=== PATIENT | female | born 1935 | race Caucasian/White ===

== ENCOUNTER → 2016-04-05 | Day surgery (SDC) | payer MEDICARE, OTHER ==
[2015-08-17 20:34] VITALS: BMI 38.1
[~2016-04-05] MED LIST: CEFAZOLIN 1 GM VIAL ONE; DEXAMETHASONE 4 MG/ML VIAL IV ONE; FENTANYL 100 MCG/2 ML VIAL IV ONE; FENTANYL 100 MCG/2 ML VIAL IV PRN; HYDROmorphone 1 MG INJECTION IV PRN; LABETALOL 20 MG/4 ML SYRINGE IV PRN; LIDOCAINE 100 MG PFS IV ONE; MEPERIDINE 25 MG/ML TUBEX IV PRN; MIDAZOLAM 2 MG/2 ML VIAL IV ONE; ONDANSETRON HCL 4 MG ODT TAB PO PRN; ONDANSETRON HCL 4 MG/2 ML VIAL IV ONE; ONDANSETRON HCL 4 MG/2 ML VIAL IV PRN; OXYCODONE HCL 5 MG TABLET ONE; PROPOFOL 200 MG/20 ML VIAL IV ONE; hydrALAZINE 20 MG/ML VIAL IV PRN
--- NOTE | 2016-04-05 09:23 | HIM.ANES ---
Anesthesia Evaluation & Plan Diagnoses: UNILATERAL PRIMARY OSTEOARTHRITIS, LEFT KNEE (04/05/16) PAIN IN LEFT KNEE (04/05/16) COMPLEX TEAR OF LAT MENSC, CURRENT INJURY, LEFT KNEE, INIT (04/05/16) - Focused Review of Systems Cardiac History: Yes: Hx Hypertension, Hx Afib/Aflutter, Hx Cardiac Disorders, Hx Abnormal Cholesterol/Hyperlipidemia HEENT: Yes: Cataract Removal, Hx Vision Problem (READING), Other HEENT Problems Respiratory: Yes: Hx Sleep Apnea (PER PCP) Gastrointestinal: Yes: Hx Gastroesophageal Reflux Disease, Hx Gastrointestinal Disorders, Hx Chronic Constipation, Hx Colonoscopy Neurological/Musculoskeletal: Yes: Hx Back Pain No: Hx Neurological Disorders Psychological: Yes Hx Anxiety, Yes Hx Mental/Emotional Disorders Endocrine: Yes: Hx Diet Controlled Diabetes (PRE DIABETIC 03/14/16 HGB A1C 6.0 ), Hx Hypothyroidism (TSH 3.270 03/14/2016) Blood/Autoimmune: No: Hx AIDS, Hx Hepatitis (type) Smoking Status: Never smoker Hx Echocardiogram (date): Yes (02/23/2016 EF 65% MILD MR,TR, LEFT ATRIUM MODERATELY DILATED) Surgical History: Yes: Knee (LEFT KNEE REPAIR 2006) Other Surgical History: TOTAL HYSTERECTOMY 1971 - Focused Physical Exam Mallampati: Class II Thyromental Distance: Less than 3 Neck: Full Range of Motion Dental: Normal - no significant findings Cardiovascular/Chest: Normal Respiratory: Lungs clear Any problems with anesthesia, including nausea and vomiting?: Yes Any relatives with a history of Malignant Hyperthermia?: No Does the patient have a history of Motion Sickness-: No Other: Problem List Problem Status Onset Cellulitis of left leg Acute Left leg pain Acute Hypothyroidism Chronic Allergies Allergy/AdvReac Type Severity Reaction Status Date / Time ezetimibe [From Zetia] Allergy Severe MYALGIA Verified 04/05/16 09:12 fish oil Allergy Severe Hives* Verified 04/05/16 09:12 Sulfa (Sulfonamide Allergy Severe Rash-Genera Verified 04/05/16 09:12 Antibiotics) lized colesevelam [From WelChol] Allergy Unknown Verified 04/05/16 09:12 cortisone Allergy See Verified 04/05/16 09:12 Comments prednisone Allergy Unknown Verified 04/05/16 09:12 GENESIS Inhibitors AdvReac Severe Cough Verified 04/05/16 09:12 atorvastatin calcium AdvReac Unknown MYALSIA Verified 04/05/16 09:12 [From Lipitor] eggs Allergy Severe Hives* Uncoded 04/05/16 09:12 seafood Allergy Severe Hives* Uncoded 04/05/16 09:12 Home Medications Medication Instructions Recorded Last Taken Type Calcium Carbonate [Calcium] 600 mg PO DAILY 08/12/14 04/04/16 17:00 History Levothyroxine Sodium [Synthroid] 150 mcg PO DAILY 08/12/14 04/05/16 06:30 History Lorazepam [Ativan] 0.5 mg PO TID PRN 08/12/14 04/04/16 23:00 History Losartan Potassium 100 mg PO QHS 08/12/14 04/03/16 22:00 History Metoprolol Succinate [Toprol Xl] 100 mg PO DAILY(HAILEY) 08/12/14 04/05/16 06:30 History Tramadol HCl 50 mg PO QID PRN 08/12/14 04/04/16 22:30 History Hydralazine HCl 25 mg PO TID #90 tab 07/06/15 04/05/16 06:30 Rx Diltiazem HCl [Cartia Xt] 120 mg PO DAILY 08/17/15 04/05/16 06:30 History Hydrocodone Bit/Acetaminophen 1 tab PO Q6H PRN #15 tab 08/17/15 Unknown Rx [Hydrocodon-Acetaminophen 5-325] Meloxicam [Mobic] 7.5 mg PO BID 08/17/15 03/30/16 History Cholecalciferol (Vitamin D3) 10,000 unit PO DAILY 04/04/16 04/04/16 17:00 History [Vitamin D3 (cholecalciferol)] Furosemide 40 mg PO DAILY PRN 04/04/16 2 Weeks Ago History Promethazine [Phenergan] 25 mg PO Q8H PRN 04/04/16 Unknown History Rivaroxaban [Xarelto] 20 mg PO DAILY 04/04/16 04/01/16 History Height and Weight Patient's height 5 ft 5 in Patient's weight 108.862 kg BMI 38.1 - Anesthetic Plan Anesthesia Type: General (LMA OK) ASA Class: 3 -: I have examined this patient and reviewed the medical record. The patient has been assessed prior to anesthesia. Risks and benefits of anesthesia and anesthetic technique options have been discussed and all questions answered. The patient accepts the risk and desires me to proceed with the planned anesthetic.
[2016-04-05] MEDS: BUPIVACAINE 0.25%-EPINEPHRINE 1:200,000 30 ML ONE ×2 (10:40→11:03)
[2016-04-05 11:59] VITALS: TEMP 97
--- NOTE | 2016-04-05 12:07 | HIMOP ---
DATE OF PROCEDURE: 04/05/2016 PREOPERATIVE DIAGNOSES: 1. Lateral meniscus tear left knee. 2. Osteoarthritis of left knee. POSTOPERATIVE DIAGNOSES: 1. Lateral meniscus tear left knee. 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 4. Synovitis. OPERATIONS: 1. Subtotal lateral meniscectomy left knee. 2. Chondroplasty patella. 3. Chondroplasty of femur and tibia. 4. Synovectomy. FACILITIES FLIGHT CHECK PILOT: Yojana Perez PA-C. ANESTHESIA: General. DRAINS: None. COMPLICATIONS: None. DISPOSITION: Stable to recovery. PROCEDURE IN DETAIL: The patient was taken back to the surgical suite, where general anesthesia was induced. The left knee was examined. It was noted to be ligamentously stable. A tourniquet was applied to the left thigh, but it was not inflated. The left leg was positioned in the leg mcgrath. The knee and leg were then prepped and draped in the standard sterile fashion. The #11 blade was used to establish a lateral parapatellar joint line portal through which the arthroscopy cannula and trocar were introduced into the knee. The knee was insufflated with sterile saline solution using an arthroscopy pump. The arthroscope was inserted. The medial gutter was initially visualized. No pathology was noted. The medial compartment was then visualized. There was noted to be some grade 3 chondromalacia affecting the weightbearing portion of the medial femoral condyle. The medial tibial plateau was in good condition. The medial meniscus appeared normal. It was probed and noted to be intact without any tear. The intercondylar notch area was visualized. ACL and PCL appeared normal. They were probed and noted to be intact. The lateral compartment was visualized. There were significant degenerative changes laterally. There was a complex tear of the lateral meniscus involving the anterior horn, the flank, and posterior horn. There was grade 3 and 4 chondromalacia of the lateral femoral condyle and the lateral tibial plateau. Using a shaver and a radiofrequency wand, a subtotal lateral meniscectomy was performed. The remaining lateral meniscus was probed and noted to be stable. A chondroplasty was performed with the grade 3 areas on the femur and the tibia. Lateral gutter showed no pathology. The patellofemoral joint was visualized. There was significant synovitis present in the patellofemoral joint. Synovectomy was performed. The femoral trochlea was in good condition except for a small area of grade 3 chondromalacia centrally and a chondroplasty was performed to this area with the shaver. There was diffuse grade 3 chondromalacia affecting the patella, and a chondroplasty was performed of the patella with the shaver. There was no sign of any patellar malalignment. No pathology was noted in the suprapatellar pouch. The arthroscopic instruments were then removed. The two portals were injected with 0.25% Marcaine with epinephrine 20 mL of which was injected intra-articularly. Each portal was closed with one 4-0 Prolene suture. Sterile dressings were applied and an Brennan wrap. The patient was extubated and taken to the recovery room in stable condition. She tolerated the procedure well without immediate complications. [id number]
[2016-04-05 13:26] VITALS: PULSE 59
[2016-04-05 13:35] VITALS: BP 211/86
--- NOTE | 2016-04-05 13:35 | SC.ANESPOS ---
Post-Anesthesia Note LOC: Fully Awake Post-Anesthesia Assessment: Awake, Returned to Baseline, Hemodynamically Stable , Pain Control Adequate Phase I & II Recovery Complete: Yes Apparent Anesthesia Complication: No : N - Vital Signs Blood Pressure: 211/86 Pulse: 59 Resp Rate: 18 O2 Sat: 94 Temp: 97 F
== END ==
LOC: SDC 08:43
PROVIDERS: ATTEND Orthopaedic Surgery
PROC: 0SBD4ZZ Excision of Left Knee Joint, Percutaneous Endoscopic Approach (ICD-10-PCS; principal; 2016-04-05 10:05)
DX: S83.272A Complex tear of lateral meniscus, current injury, left knee, initial encounter (principal); M22.42 Chondromalacia patellae, left knee; M65.862 Other synovitis and tenosynovitis, left lower leg; M17.12 Unilateral primary osteoarthritis, left knee; I10 Essential (primary) hypertension; E78.5 Hyperlipidemia, unspecified; E78.00 Pure hypercholesterolemia, unspecified; G47.30 Sleep apnea, unspecified; K21.9 Gastro-esophageal reflux disease without esophagitis; E11.9 Type 2 diabetes mellitus without complications; F41.9 Anxiety disorder, unspecified; K58.9 Irritable bowel syndrome, unspecified; Z79.899 Other long term (current) drug therapy; X58.XXXA Exposure to other specified factors, initial encounter
CPT/HCPCS: 29881; 82962; A9270; J0690; J1100; J2001; J2405; J2550; J3010; J3490; J2250